=== PATIENT | male | born 1955 | race Caucasian/White ===

== ENCOUNTER → 2016-11-07 | Outpatient (CLI) | payer OTHER ==
[~2016-11-07] MED LIST: AMLO-110 PO; GLC500 PO; GLIM2TAB2 PO; HYG/25 PO; LISI40TA PO; METO100T44 PO
--- NOTE | 2016-11-07 12:50 | DIAGNOSTIC IMAGING REPORT ---
CHEST 2 VIEWS ROUTINE CLINICAL HISTORY: PNEUMONIA COMPARISON STUDY: 09/21/2012 FINDINGS: The heart is mildly enlarged. There is no failure. There is no focal pulmonary consolidation. There are no pleural effusions.[ IMPRESSION: No active disease in the chest. Electronically signed by: Henrry Lewis M.D. 11/07/2016 12:48 PM Dictated Date/Time: 11/07/2016 12:48 PM
== END | disposition home or self-care (01) ==
LOC: C.RADBC 12:14
PROVIDERS: ATTEND Physician Assistant Medical
DX: J18.9 Pneumonia, unspecified organism (principal)

== ENCOUNTER → 2017-06-18 | Outpatient (CLI) | payer OTHER ==
[2017-06-18 13:21] LABS: BASO % 0.3 %; BASO ABS # 0.03 K/uL (0-0.2); COMPLETE YES; EOS % 2.3 %; HEMATOCRIT 42.5 % (42-52); IG% 0.4 %; LYMPH % 42.7 %; LYMPH ABS # 4.16 K/uL (1.2-3.4); MEAN CELL VOLUME 88.4 fL (80-100); MEAN CORPUSCULAR HEMOGLOBIN 30.6 pg (25-34); MEAN CORPUSCULAR HGB CONC 34.6 g/dl (32-36); MEAN PLATELET VOLUME 11.4 fL (7.4-10.4); MONO % 5.9 %; NEUT % 48.4 %; PLATELET COUNT 163 K/uL (130-400); RED BLOOD COUNT 4.81 M/uL (4.7-6.1); WHITE BLOOD COUNT 9.74 K/uL (4.8-10.8)
[2017-06-18 13:52] LABS: ESTIMATED AVERAGE GLUCOSE 189 mg/dl; HA1C FLAG Normal (Normal)
[2017-06-18 14:20] LABS: ALT/SGPT 76 U/L (12-78); BLOOD UREA NITROGEN 18 mg/dl (7-18); BUN/CREATININE RATIO 16.9 (10-20); CALCIUM 8.8 mg/dl (8.5-10.1); CARBON DIOXIDE 27 mmol/L (21-32); CHLORIDE 100 mmol/L (98-107); CHOLESTEROL 157 mg/dl (0-200); CREATININE 1.08 mg/dl (0.60-1.40); GLUCOSE 172 mg/dl (70-99); POTASSIUM 3.6 mmol/L (3.5-5.1); SODIUM 137 mmol/L (136-145); TRIGLYCERIDES 163 mg/dl (0-150); VERY LOW DENSITY LIPOPROT CALC 33 mg/dl
[2017-06-18 14:27] LABS: ALB/GLOB RATIO 1.1 (0.9-2); ALKALINE PHOSPHATASE 66 U/L (45-117); AST/SGOT 35 U/L (15-37); CHOLESTEROL/HDL RATIO 4.2; HDL CHOLESTEROL 37 mg/dl; LDL CHOLESTEROL CALCULATED 87 mg/dl; PROSTATE SPECIFIC ANTIGEN 0.209 ng/ml (0.000-4.000)
[2017-06-18 14:33] LABS: LYME DISEASE AB IGG NEG (NEG)
[2017-06-18 14:34] LABS: LYME DISEASE AB IGM NEG (NEG)
== END | disposition home or self-care (01) ==
LOC: C.LAB 11:48
PROVIDERS: ATTEND Internal Medicine
DX: M25.50 Pain in unspecified joint (principal); K63.5 Polyp of colon

== ENCOUNTER → 2017-07-01 | Outpatient (CLI) | payer OTHER ==
--- NOTE | 2017-07-01 15:15 | DIAGNOSTIC IMAGING REPORT ---
CHEST 2 VIEWS ROUTINE CLINICAL HISTORY: R06.02 Exertional shortness of [id number] dyspnea COMPARISON STUDY: 472 and 17 FINDINGS: Mild stable cardiomegaly. Lungs are clear. Diaphragms smooth. No focal infiltrate. IMPRESSION: Mild stable cardiomegaly. Otherwise negative study. The above report was generated using voice recognition software. It may contain grammatical, syntax or spelling errors. Electronically signed by: Francois Buitrago M.D. 07/01/2017 3:14 PM Dictated Date/Time: 07/01/2017 3:13 PM
== END | disposition home or self-care (01) ==
LOC: C.RADBC 14:29
PROVIDERS: ATTEND Internal Medicine
DX: R06.02 Shortness of breath (principal); I51.7 Cardiomegaly